=== PATIENT | male | born 1995 | race Caucasian/White ===

== ENCOUNTER → 2025-01-23 18:40 | Outpatient (CLI) | payer OTHER, SELFPAY ==
[2025-01-23 19:23] LABS: Influenza A - CEPHEID Flu A NEGATIVE (NEGATIVE); Influenza B - CEPHEID Flu B NEGATIVE (NEGATIVE)
[2025-01-23 19:32] LABS: COVID-19 CEPHEID 4-PLEX PCR Negative (Negative)
== END ==
PROVIDERS: Visit Provider Chiropractor
DX: R05.1 Acute cough (principal)
CPT/HCPCS: 87637